=== PATIENT | female | born 1960 | race Two or more races ===

== ENCOUNTER 2022-07-20 07:15 | Inpatient (IN) | payer MEDICAID ==
[2022-07-18 10:49] LABS: Basophils # (auto) 0 10 ^3/uL (0-0.2); Basophils % (auto) 0.4 % (0.0-2.0); Eosinophils # (auto) 0.2 10 ^3/uL (0-0.8); Eosinophils % (auto) 2.7 % (0.0-7.0); Hematocrit 40.6 % (36.0-46.0); Hemoglobin 13.4 g/dL (12.2-16.2); Lymphocytes # (auto) 2.7 10 ^3/uL (0.4-5.4); Lymphocytes % (auto) 41.6 % (10.0-50.0); Mean Corpuscular Hemoglobin 28.2 pg (28.0-32.0); Mean Corpuscular Hgb Conc. 33.1 g/dL (32.0-36.0); Mean Corpuscular Volume 85.1 fL (80.0-100.0); Monocytes # (auto) 0.5 10 ^3/uL (0-1.3); Monocytes % (auto) 7.3 % (0.0-12.0); Neutrophils # (auto) 3.1 10 ^3/uL (1.6-8.6); Nucleated Red Blood Cells % 0.1 %; Red Blood Cells 4.77 10^6/uL (4.0-5.20); Red Cell Distribution Width 15.1 % (11.8-14.3); White Blood Cell 6.6 10^3/uL (4.4-10.8)
[2022-07-18 10:53] LABS: INR 0.97 (0.9-1.15); Partial Thromboplastin Time 27.6 sec (24.6-33.4)
[2022-07-18 11:15] LABS: Albumin 3.5 g/dL (3.4-5.0); Calcium 8.7 mg/dL (8.5-10.1)
[2022-07-18 11:19] LABS: BUN/Creatinine Ratio 18.2; Bilirubin, Total 0.6 mg/dL (0.2-1.0); Total Protein 7.1 g/dL (6.4-8.2)
[2022-07-18 11:47] LABS: Urine Bacteria NONE SEEN /hpf (None Seen); Urine Blood Negative /uL (Negative); Urine Specific Gravity 1.015 (1.001-1.035); Urine WBC 11 /hpf (0 - 5)
[~2022-07-20] VITALS: Ht 167.6 cm; Wt 125.3 kg
[~2022-07-20 07:15] MED LIST: ALPR0.5T7 PO; CHOL500014 PO; CYAN1TAB14 PO; CYCL-611 PO; DULO60CA PO; FAMO-68 PO; GABA400C PO; HYDR-4072 PO; LIDO5DIS21 TOP; LOSA-69 PO; METF-489 PO; TRAZ100T3 PO
[2022-07-20] MEDS ORDERED: ceFAZolin 1GM/50ML 100 ML IV ONE (07:38)
[2022-07-20] MEDS ORDERED: BUPIVACAINE HCL 0.25% P/F 10 ML VIAL ONE (09:18)
[2022-07-20] MEDS ORDERED: LIDOCAINE W/ EPINEPHRINE 2% INJ 20ML VIAL ONE (09:18)
[2022-07-20] MEDS ORDERED: SUCCINYLCHOLINE CHLORIDE 20 MG/ML 10ML VIAL IV ONE (09:33)
[2022-07-20] MEDS ORDERED: MIDAZOLAM HCL 2MG/2ML 2ml VIAL (1mg/ml) ONE (09:34)
[2022-07-20] MEDS ORDERED: MEPERIDINE HCL (50 MG/ML) 1 ML VIAL ONE (09:34)
[2022-07-20] MEDS ORDERED: fentaNYL CITRATE 100 MCG/2 ML VL ONE (09:34)
[2022-07-20] MEDS ORDERED: LABETALOL HCL 5 MG/ML 4ML SYRINGE IV PRN (10:15)
[2022-07-20] MEDS ORDERED: ePHEDrine SULFATE 50 MG/ML AMP IV PRN (10:15)
[2022-07-20] MEDS ORDERED: MORPHINE SULFATE 4 MG/ML SYR/VIAL IV PRN (10:15)
[2022-07-20] MEDS ORDERED: MIDAZOLAM HCL 2MG/2ML 2ml VIAL (1mg/ml) IV PRN (10:15)
[2022-07-20] MEDS ORDERED: ONDANSETRON HCL 4 MG/2 ML VIAL IV PRN (10:15)
[2022-07-20] MEDS ORDERED: METOCLOPRAMIDE HCL 5MG/ml INJ 2ml VIAL IV PRN (10:15)
[2022-07-20] MEDS ORDERED: DexAMETHasone SOD PHOS 10MG/1ML VIAL INJ ONE (10:55)
[2022-07-20] MEDS ORDERED: ONDANSETRON HCL 4 MG/2 ML VIAL ONE (10:56)
[2022-07-20] MEDS ORDERED: PROPOFOL 10 MG/ML 20 ML IV ONE (10:56)
[2022-07-20] MEDS ORDERED: SUGAMMADEX 200mg/2ml Vial (100MG/ML) IV ONE (11:00)
[2022-07-20] MEDS ORDERED: FAMOTIDINE (10MG/ML) 2ML VL IV ONE (11:45)
[2022-07-20] MEDS ORDERED: D5W/SOD CHL 0.45%/KCL 20MEQ 1,000 ML IV SCH (11:45)
[2022-07-20] MEDS: HYDROmorphone HCL 2 MG/ML VL/or syr IV PRN ×4 (11:47→21:27)
[2022-07-20] MEDS ORDERED: ceFAZolin 1GM/50ML 50 ML IV SCH (12:00)
[2022-07-20] MEDS ORDERED: hydrALAZINE HCL 20 MG/ML VL IV PRN (12:00)
[2022-07-20] MEDS: HYDROcodone-ACET 5/325MG TAB PO PRN (13:54)
[2022-07-20] MEDS: D5W/SOD CHL 0.45%/KCL 20MEQ 1,000 ML IV SCH ×2 (14:31→21:26)
[2022-07-20] MEDS: metroNIDAZOLE 500MG/100ML 100 ML IV SCH ×2 (15:36→21:26)
[2022-07-20] MEDS: ceFAZolin 1GM/50ML 50 ML IV SCH ×2 (16:00→21:26)
[2022-07-20 16:44] VITALS: BP 141/90
[2022-07-20] MEDS: ONDANSETRON HCL 4 MG/2 ML VIAL IV PRN (21:27)
[2022-07-20] MEDS: GABAPENTIN 400 MG CAP PO SCH (21:28)
[2022-07-20 22:00] VITALS: BP 137/91
[2022-07-21] MEDS: HYDROmorphone HCL 2 MG/ML VL/or syr IV PRN ×2 (02:11→09:32)
[2022-07-21] MEDS: ONDANSETRON HCL 4 MG/2 ML VIAL IV PRN ×2 (02:12→09:16)
[2022-07-21] MEDS: ceFAZolin 1GM/50ML 50 ML IV SCH ×4 (04:29→21:08)
[2022-07-21 05:00] VITALS: BP 155/96
[2022-07-21] MEDS: metroNIDAZOLE 500MG/100ML 100 ML IV SCH ×3 (06:01→21:08)
[2022-07-21 06:30] LABS: Basophils # (auto) 0 10 ^3/uL (0-0.2); Basophils % (auto) 0.1 % (0.0-2.0); Eosinophils # (auto) 0 10 ^3/uL (0-0.8); Hematocrit 38.7 % (36.0-46.0); Hemoglobin 12.9 g/dL (12.2-16.2); Lymphocytes # (auto) 1.4 10 ^3/uL (0.4-5.4); Lymphocytes % (auto) 13.7 % (10.0-50.0); Mean Corpuscular Hemoglobin 28.5 pg (28.0-32.0); Mean Corpuscular Hgb Conc. 33.4 g/dL (32.0-36.0); Mean Corpuscular Volume 85.2 fL (80.0-100.0); Monocytes # (auto) 0.7 10 ^3/uL (0-1.3); Monocytes % (auto) 6.5 % (0.0-12.0); Neutrophils % (auto) 79.7 % (37.0-80.0); Nucleated Red Blood Cells % 0.1 %; Red Blood Cells 4.54 10^6/uL (4.0-5.20)
[2022-07-21 06:57] LABS: Albumin 3.5 g/dL (3.4-5.0); Calcium 8.6 mg/dL (8.5-10.1); Potassium 4.9 mmol/L (3.5-5.1)
[2022-07-21 07:01] LABS: BUN/Creatinine Ratio 15.7; Bilirubin, Total 0.2 mg/dL (0.2-1.0); Total Protein 6.9 g/dL (6.4-8.2)
[2022-07-21 08:50] VITALS: BP 173/98
[2022-07-21] MEDS: GABAPENTIN 400 MG CAP PO SCH ×2 (09:22→21:09)
[2022-07-21] MEDS: D5W/SOD CHL 0.45%/KCL 20MEQ 1,000 ML IV SCH ×2 (09:33→13:00)
[2022-07-21] MEDS: FAMOTIDINE (10MG/ML) 2ML VL IV SCH (09:57)
[2022-07-21] MEDS ORDERED: DULoxetine HCL 30 MG CAP PO ONE (12:00)
[2022-07-21] MEDS ORDERED: LOSARTAN POTASSIUM 50 MG TAB PO ONE (12:00)
[2022-07-21] MEDS ORDERED: MORPHINE SULFATE INJ 2 MG/ml SYRG IV PRN (12:00)
[2022-07-21 12:30] VITALS: BP 154/94
[2022-07-21 12:50] VITALS: BP 123/65
[2022-07-21] MEDS: HYDROcodone-ACET 5/325MG TAB PO PRN (14:46)
[2022-07-21 16:37] VITALS: BP 143/67
[2022-07-21 22:00] VITALS: BP 134/78
[2022-07-21] MEDS ORDERED: traZODone HCL 50 MG TAB PO SCH (22:00)
[2022-07-22] MEDS: ceFAZolin 1GM/50ML 50 ML IV SCH ×2 (04:50→10:20)
[2022-07-22] MEDS: HYDROcodone-ACET 5/325MG TAB PO PRN ×2 (04:53→10:21)
[2022-07-22] MEDS: D5W/SOD CHL 0.45%/KCL 20MEQ 1,000 ML IV SCH (04:55)
[2022-07-22 05:00] VITALS: BP 118/71
[2022-07-22] MEDS: metroNIDAZOLE 500MG/100ML 100 ML IV SCH (06:03)
[2022-07-22 06:53] LABS: Basophils # (auto) 0 10 ^3/uL (0-0.2); Basophils % (auto) 0.5 % (0.0-2.0); Eosinophils # (auto) 0.1 10 ^3/uL (0-0.8); Eosinophils % (auto) 1.3 % (0.0-7.0); Hematocrit 36.5 % (36.0-46.0); Hemoglobin 12.1 g/dL (12.2-16.2); Lymphocytes # (auto) 1.9 10 ^3/uL (0.4-5.4); Lymphocytes % (auto) 27.2 % (10.0-50.0); Mean Corpuscular Hemoglobin 28.3 pg (28.0-32.0); Mean Corpuscular Hgb Conc. 33.1 g/dL (32.0-36.0); Mean Corpuscular Volume 85.5 fL (80.0-100.0); Monocytes # (auto) 0.5 10 ^3/uL (0-1.3); Monocytes % (auto) 7.7 % (0.0-12.0); Neutrophils # (auto) 4.4 10 ^3/uL (1.6-8.6); Neutrophils % (auto) 63.3 % (37.0-80.0); Red Blood Cells 4.27 10^6/uL (4.0-5.20); Red Cell Distribution Width 15.1 % (11.8-14.3)
[2022-07-22 07:05] LABS: BUN/Creatinine Ratio 12.8; Calcium 8.3 mg/dL (8.5-10.1); Potassium 3.9 mmol/L (3.5-5.1)
[2022-07-22 07:08] LABS: Bilirubin, Total 0.3 mg/dL (0.2-1.0); Total Protein 6.5 g/dL (6.4-8.2)
[2022-07-22 09:00] VITALS: BP 150/92
[2022-07-22] MEDS ORDERED: DULoxetine HCL 30 MG CAP PO SCH (10:00)
[2022-07-22] MEDS ORDERED: LOSARTAN POTASSIUM 50 MG TAB PO SCH (10:00)
[2022-07-22] MEDS: FAMOTIDINE (10MG/ML) 2ML VL IV SCH (10:20)
[2022-07-22] MEDS: GABAPENTIN 400 MG CAP PO SCH (10:21)
[2022-07-22] MEDS ORDERED: TRAM50TA2 PO (11:17)
[2022-07-22] MEDS ORDERED: CEPH-510 PO (11:17)
[2022-07-22] MEDS ORDERED: DOCU-94 PO (11:17)
[2022-07-22 11:25] VITALS: BP 150/92
== END 2022-07-22 14:24 | disposition home or self-care (01) | DRG 263 ==
LOC: SUR 07:15 → OVERFLOW 11:48 → WEST WING 12:54
PROVIDERS: ADMIT Internal Medicine; ATTEND Internal Medicine
PROC: 0FT44ZZ Resection of Gallbladder, Percutaneous Endoscopic Approach (ICD-10-PCS; principal; 2022-07-20 09:45)
DX: K80.64 Calculus of gallbladder and bile duct with chronic cholecystitis without obstruction (principal); E66.01 Morbid (severe) obesity due to excess calories; G89.29 Other chronic pain; I10 Essential (primary) hypertension; Z68.41 Body mass index [BMI] 40.0-44.9, adult; F32.A Depression, unspecified; F41.9 Anxiety disorder, unspecified; Z20.822 Contact with and (suspected) exposure to COVID-19; K66.0 Peritoneal adhesions (postprocedural) (postinfection)
CPT/HCPCS: 36415; 80053; 81001; 82962; 85025; 85610; 85730; 86850; 86900; 86901; G0378; J0330; J0690; J1100; J2250; J2405; J2704; J3490